=== PATIENT | male | born 1970 | race Two or more races ===

== ENCOUNTER 2020-07-20 22:46 | Emergency (ER) | payer MEDICARE, MEDICAID ==
[~2020-07-20] VITALS: Ht 177.8 cm; Wt 94.3 kg
[~2020-07-20 22:46] MED LIST: CHOL20007 PO; GLIM4TAB42 PO; INSUINJ37 SC; METF-371 PO; MONT10TA34 PO; PANT40TA2 PO; RISP2TAB62 PO; SITA50TA PO; VALS40TA2 PO
[2020-07-21] MEDS ORDERED: BACITRACIN TOP OINT 1 UD PKG TOP ONE (00:30)
[2020-07-21] MEDS ORDERED: HYDROcodone-ACET 5/325MG TAB PO ONE (00:45)
[2020-07-21] MEDS ORDERED: TETANUS-DIPTH-ACEL PERTUSSIS 0.5ML SYR Tdap IM ONE (02:45)
[2020-07-21 02:52] VITALS: BP 130/51
== END 2020-07-21 02:57 | disposition home or self-care (01) ==
LOC: ER 22:46
DX: T22.222A Burn of second degree of left elbow, initial encounter (principal); T24.222A Burn of second degree of left knee, initial encounter; J45.909 Unspecified asthma, uncomplicated; E11.9 Type 2 diabetes mellitus without complications; I10 Essential (primary) hypertension; E66.9 Obesity, unspecified; Z68.29 Body mass index [BMI] 29.0-29.9, adult; Z98.890 Other specified postprocedural states; Z79.4 Long term (current) use of insulin; Z79.899 Other long term (current) drug therapy; X10.2XXA Contact with fats and cooking oils, initial encounter; Y93.89 Activity, other specified; Y92.89 Other specified places as the place of occurrence of the external cause; Y99.8 Other external cause status
CPT/HCPCS: 16020

== ENCOUNTER 2022-09-15 00:39 | Emergency (ER) | payer MEDICARE, OTHER ==
[~2022-09-15] VITALS: Ht 172.7 cm; Wt 95.5 kg
[~2022-09-15 00:39] MED LIST changes: +MONT-8 PO; -MONT10TA34 PO
[2022-09-15 00:47] VITALS: BP 147/57
== END 2022-09-15 03:56 | disposition home or self-care (01) ==
LOC: EDBD 00:39 → ER 00:39
DX: S63.501A Unspecified sprain of right wrist, initial encounter (principal); S63.502A Unspecified sprain of left wrist, initial encounter; S80.01XA Contusion of right knee, initial encounter; I10 Essential (primary) hypertension; E11.9 Type 2 diabetes mellitus without complications; J45.909 Unspecified asthma, uncomplicated; Z79.4 Long term (current) use of insulin; Z79.899 Other long term (current) drug therapy; W01.0XXA Fall on same level from slipping, tripping and stumbling without subsequent striking against object, initial encounter; Y93.89 Activity, other specified; Y92.89 Other specified places as the place of occurrence of the external cause; Y99.8 Other external cause status
CPT/HCPCS: 29125; 73110; 73562

== ENCOUNTER 2022-11-28 22:31 | Emergency (ER) | payer OTHER ==
[~2022-11-28] VITALS: Ht 177.8 cm; Wt 104.0 kg
[2022-11-28 23:22] LABS: Basophils # (auto) 0.1 10 ^3/uL (0-0.2); Basophils % (auto) 0.9 % (0.0-2.0); Eosinophils # (auto) 0 10 ^3/uL (0-0.8); Eosinophils % (auto) 0.1 % (0.0-7.0); Hemoglobin 14.4 g/dL (13.5-17.5); Lymphocytes % (auto) 13.6 % (10.0-50.0); Mean Corpuscular Hgb Conc. 33.6 g/dL (32.0-36.0); Mean Corpuscular Volume 89.3 fL (80.0-100.0); Monocytes # (auto) 0.9 10 ^3/uL (0-1.3); Monocytes % (auto) 5.7 % (0.0-12.0); Neutrophils # (auto) 11.9 10 ^3/uL (1.6-8.6); Neutrophils % (auto) 79.7 % (37.0-80.0); Red Blood Cells 4.81 10^6/uL (4.5-5.90); Red Cell Distribution Width 14.5 % (11.8-14.3)
[2022-11-28 23:45] LABS: Albumin 4.2 g/dL (3.4-5.0); Magnesium 2.8 mg/dL (1.6-2.6); Potassium 4.5 mmol/L (3.5-5.1)
[2022-11-28 23:48] LABS: Bilirubin, Total 0.6 mg/dL (0.2-1.0); Total Protein 8.3 g/dL (6.4-8.2)
[2022-11-29 07:48] LABS: Urine Bacteria FEW /hpf (None Seen); Urine Blood Negative /uL (Negative); Urine Clarity HAZY (Clear); Urine Color Yellow (Yellow); Urine Hyaline Cast MANY /lpf (0 - 2); Urine Mucus FEW (None Seen); Urine Protein, UAD TRACE (Negative); Urine Specific Gravity 1.028 (1.001-1.035); Urine Urobilinogen Normal (Negative); Urine WBC 12 /hpf (0 - 3); Urine pH 5.5 (5.0-8.0)
[2022-11-29 08:49] VITALS: BP 116/64; PULSE 52; RESP 18; TEMP 98.3; O2SAT 95
== END 2022-11-29 08:51 | disposition home or self-care (01) ==
LOC: ER 22:31 → EDBD 22:31 → EDUNIT# 22:31 → ER 11-29 08:45
DX: E11.65 Type 2 diabetes mellitus with hyperglycemia (principal); I12.9 Hypertensive chronic kidney disease with stage 1 through stage 4 chronic kidney disease, or unspecified chronic kidney disease; E11.22 Type 2 diabetes mellitus with diabetic chronic kidney disease; N18.30 Chronic kidney disease, stage 3 unspecified; M79.672 Pain in left foot; M79.671 Pain in right foot; J45.909 Unspecified asthma, uncomplicated; Z79.4 Long term (current) use of insulin; Z79.899 Other long term (current) drug therapy
CPT/HCPCS: 36415; 71045; 80053; 81001; 83735; 84484; 85025; 93005

== ENCOUNTER 2022-11-30 09:51 | Emergency (ER) | payer OTHER ==
[~2022-11-30] VITALS: Ht 177.8 cm; Wt 104.0 kg
[2022-11-30 10:37] LABS: Basophils # (auto) 0.1 10 ^3/uL (0-0.2); Eosinophils # (auto) 0.1 10 ^3/uL (0-0.8); Eosinophils % (auto) 1.4 % (0.0-7.0); Hematocrit 41.6 % (41.0-53.0); Hemoglobin 14.5 g/dL (13.5-17.5); Lymphocytes # (auto) 3.9 10 ^3/uL (0.4-5.4); Lymphocytes % (auto) 39.5 % (10.0-50.0); Mean Corpuscular Hemoglobin 30.9 pg (28.0-32.0); Mean Corpuscular Hgb Conc. 34.8 g/dL (32.0-36.0); Mean Corpuscular Volume 88.9 fL (80.0-100.0); Monocytes # (auto) 0.6 10 ^3/uL (0-1.3); Monocytes % (auto) 5.6 % (0.0-12.0); Neutrophils # (auto) 5.2 10 ^3/uL (1.6-8.6); Neutrophils % (auto) 52.5 % (37.0-80.0); Nucleated Red Blood Cells % 0.1 %; Red Blood Cells 4.68 10^6/uL (4.5-5.90); Red Cell Distribution Width 14.1 % (11.8-14.3); White Blood Cell 9.8 10^3/uL (4.4-10.8)
[2022-11-30 11:17] LABS: Albumin 3.7 g/dL (3.4-5.0); Calcium 9.5 mg/dL (8.5-10.1); Potassium 3.7 mmol/L (3.5-5.1)
[2022-11-30 11:21] LABS: BUN/Creatinine Ratio 27.9 (10.0-20.0); Bilirubin, Total 0.5 mg/dL (0.2-1.0)
[2022-11-30 11:55] VITALS: BP 152/55; PULSE 53; RESP 53; TEMP 97; O2SAT 96
== END 2022-11-30 11:57 | disposition home or self-care (01) ==
LOC: ER 09:51
DX: R07.89 Other chest pain (principal); F41.9 Anxiety disorder, unspecified; I10 Essential (primary) hypertension; E11.9 Type 2 diabetes mellitus without complications; J45.909 Unspecified asthma, uncomplicated; K80.20 Calculus of gallbladder without cholecystitis without obstruction; Z98.890 Other specified postprocedural states; Z79.4 Long term (current) use of insulin; Z79.84 Long term (current) use of oral hypoglycemic drugs; Z79.899 Other long term (current) drug therapy
CPT/HCPCS: 36415; 71045; 80053; 84484; 85025; 93005

== ENCOUNTER → 2023-01-12 | Outpatient (CLI) | payer OTHER, MEDICAID ==
[2023-01-12 09:22] LABS: Basophils # (auto) 0.1 10 ^3/uL (0-0.2); Basophils % (auto) 0.6 % (0.0-2.0); Eosinophils # (auto) 0.2 10 ^3/uL (0-0.8); Eosinophils % (auto) 1.7 % (0.0-7.0); Hematocrit 41.1 % (41.0-53.0); Hemoglobin 13.9 g/dL (13.5-17.5); Lymphocytes # (auto) 3.4 10 ^3/uL (0.4-5.4); Mean Corpuscular Hemoglobin 30.6 pg (28.0-32.0); Mean Corpuscular Hgb Conc. 33.7 g/dL (32.0-36.0); Mean Corpuscular Volume 90.6 fL (80.0-100.0); Monocytes # (auto) 0.6 10 ^3/uL (0-1.3); Monocytes % (auto) 6.5 % (0.0-12.0); Neutrophils # (auto) 5.1 10 ^3/uL (1.6-8.6); Neutrophils % (auto) 55.2 % (37.0-80.0); Nucleated Red Blood Cells % 0.1 %; Red Blood Cells 4.54 10^6/uL (4.5-5.90); Red Cell Distribution Width 13.8 % (11.8-14.3); White Blood Cell 9.3 10^3/uL (4.4-10.8)
[2023-01-12 10:00] LABS: Alanine Aminotransferase 37 U/L (7-40); Albumin 4.8 g/dL (3.2-4.8); Alkaline Phosphatase 82 U/L (46-116); Anion Gap 8 (5-15); Aspartate Aminotransferase 24 U/L (13-40); Bilirubin, Total 0.4 mg/dL (0.2-1.0); Blood Urea Nitrogen 16 mg/dL (9-23); Calcium 9.9 mg/dL (8.5-10.1); Carbon Dioxide 27 mmol/L (20-30); Chloride 108 mmol/L (98-107); Cholesterol 96 mg/dL (< 200); Glucose 163 mg/dL (74-106); HDL Cholesterol 36 mg/dL (40-59); LDL Cholesterol 47 mg/dL (< 100); Potassium 4.3 mmol/L (3.5-5.1); Sodium 143 mmol/L (136-145); Total Protein 7.6 g/dL (5.7-8.2); Triglycerides 54 mg/dL (< 150)
[2023-01-12 13:44] LABS: Free T3 3.62 pg/mL (2.3-4.2); Free T4 (Free Thyroxine) 1.01 ng/dL (0.89-1.76)
== END | disposition home or self-care (01) ==
LOC: LAB 09:03
PROVIDERS: ATTEND Internal Medicine
DX: I10 Essential (primary) hypertension (principal)
CPT/HCPCS: 36415; 80053; 80061; 84439; 84443; 84481; 85025

== ENCOUNTER 2023-12-07 21:53 | Emergency (ER) | payer OTHER, MEDICAID ==
[~2023-12-07] VITALS: Ht 167.6 cm; Wt 100.0 kg
[2023-12-07 21:55] VITALS: BP 161/65; RESP 18; O2SAT 96
[2023-12-07 22:47] VITALS: PULSE 52
== END 2023-12-08 01:54 | disposition home or self-care (01) ==
LOC: ER 21:53
DX: R55 Syncope and collapse (principal); E11.22 Type 2 diabetes mellitus with diabetic chronic kidney disease; I12.9 Hypertensive chronic kidney disease with stage 1 through stage 4 chronic kidney disease, or unspecified chronic kidney disease; N18.9 Chronic kidney disease, unspecified; J45.909 Unspecified asthma, uncomplicated; W01.0XXA Fall on same level from slipping, tripping and stumbling without subsequent striking against object, initial encounter; Y93.89 Activity, other specified; Y92.89 Other specified places as the place of occurrence of the external cause; Y99.8 Other external cause status
CPT/HCPCS: 70450; 72125; 93005

== ENCOUNTER 2024-10-21 00:17 | Emergency (ER) | payer OTHER, MEDICAID ==
[~2024-10-21] VITALS: Ht 172.7 cm; Wt 95.5 kg
--- NOTE | 2024-10-21 01:02 | ED.PDOC ---
History of Present Illness HPI Comments 54-year-old male came to ER for dizziness. Patient is developmentally delayed, has a history of hypertension and diabetes. Patient lives at the assisted care facility. Was noted by caregivers this evening that patient was feeling dizzy. Blood sugar taken was 45, so patient was given a Pepsi and glucose improved to 84. Patient denies any pain, nausea or vomiting, headache, vision changes, focal weakness. Chief Complaint: Dizziness Time Seen by MD: 01:01 Primary Care Provider: UNKNOWN Reviewed Notes: Nurses Notes Allergies: Coded Allergies: NO KNOWN ALLERGIES (Unverified , 12/09/17) Home Meds Reported Medications Cholecalciferol (VITAMIN D3) 2,000 Unit Tab, 50 MCG PO DAILY, TAB 07/15/18 Cholecalciferol (VITAMIN D3) 2,000 Unit Tab, 50 MCG PO DAILY, #30 TAB 5 Refills 07/15/18 Metformin Hydrochloride (Metformin Hcl) 850 Mg Tab, 850 MG PO BID for 30 Days, MG 07/15/18 Insulin Glargine (Lantus Solostar) 100 Unit/Ml Inj, 40 UNIT SC PM, INJ 12/10/17 Insulin Glargine (Lantus Solostar) 100 Unit/Ml Inj, 60 UNIT SC AC, INJ 12/10/17 Risperidone (Risperidone) 2 Mg Tab, 2 MG PO BID, TAB 12/10/17 Pantoprazole Sodium Sesquihydr (Protonix) 40 Mg Tab, 40 MG PO DAILY, #30 TAB 12/10/17 Montelukast Sodium (MONTELUKAST SODIUM) 10 Mg Tab, 1 TAB PO DAILY, #30 TAB 5 Refills 12/10/17 Valsartan (Diovan) 40 Mg Tab, 160 MG PO DAILY, TAB 12/10/17 Sitagliptin Phosphate (Januvia) 50 Mg Tab, 1 TAB PO DAILY, #30 TAB 5 Refills 12/10/17 Glimepiride (Glimepiride) 4 Mg Tab, 1 TAB PO DAILY, #30 TAB 5 Refills 12/10/17 Information Source: Patient Mode of Arrival: Ambulatory Severity: Moderate Timing: Hours Duration: Since onset Past Medical History PAST MEDICAL HISTORY: Asthma, CKF, DM, Gallstones, HTN, NM Past Medical History (Other): Developmental delay Surgical History: Denies all surgeries Family History Family History: Reviewed,noncontributory to illness Social History Smoker: Non-Smoker Alcohol: Denies ETOH Use Drugs: Denies Drug Use Lives In: Home Constitutional: denies: chills, diaphoresis, fatigue, fever, malaise, sweats, weakness, others EENTM: denies: blurred vision, double vision, ear bleeding, ear discharge, ear drainage, ear pain, ear ringing, eye pain, eye redness, hearing loss, mouth pain, mouth swelling, nasal discharge, nose bleeding, nose congestion, nose pain, photophobia, tearing, throat pain, throat swelling, voice changes, others Respiratory: denies: cough, hemoptysis, orthopnea, SOB at rest, shortness of breath, SOB with excertion, stridor, wheezing, others Cardiovascular: denies: chest pain, dizzy spells, diaphoresis, Dyspnea on exertion, edema, irregular heart beat, left arm pain, lightheadedness, palpitations, PND, syncope, others Gastrointestinal: denies: abdomen distended, abdominal pain, blood streaked bowels, constipated, diarrhea, dysphagia, difficulty swallowing, hematemesis, melena, nausea, poor appetite, poor fluid intake, rectal bleeding, rectal pain, vomiting, others Genitourinary: denies: burning, dysuria, flank pain, frequency, hematuria, incontinence, penile discharge, penile sore, pain, testicle pain, testicle swelling, urgency, others Neurological: reports: dizziness; denies: fainting, headache, left sided numbness, left sided weakness, numbness, paresthesia, pre-existing deficit, right sided numbness, right sided weakness, seizure, speech problems, tingling, tremors, weakness, others Musculoskeletal: denies: back pain, gout, joint pain, joint swelling, muscle pain, muscle stiffness, neck pain, others Integumetry: denies: bruises, change in color, change in hair/nails, dryness, laceration, lesions, lumps, rash, wounds, others Allergic/Immunocompromised: denies: Difficulty Healing, Frequent Infections, Hives, Itching, others Hematologic/Lymphatic: denies: anemia, blood clots, easy bleeding, easy bruising, swollen glands, others Endocrine: denies: excessive hunger, excessive sweating, excessive thirst, excessive urination, flushing, intolerance to cold, intolerance to heat, une xplained weight gain, unexplained weight loss, others Psychiatric: denies: anxiety, bipolar disorder, depression, hopeless, panic disorder, schizophrenia, sleepless, suicidal, others Physical Exam General Appearance: No Apparent Distress, Obese HEENT: Other (Pupils and face symmetric. Moist mucous membranes.) Neck: Full Range of Motion, Normal Inspection Respiratory: Lungs Clear, No Accessory Muscle Use, No Respiratory Distress, Normal Breath Sounds Cardiovascular: No Edema, No JVD, Regular Rate/Rhythm Breast Exam: Deferred Gastrointestinal: Non Tender, Soft Genitalia: Deferred Pelvic: Deferred Rectal: Deferred Extremities: Normal inspection, Normal range of motion, Non-tender, No pedal edema Neurologic: Alert (Oriented x4), Normal Affect, Normal Mood, Other (Ambulatory without difficulty) Cerebellar Function: NOT DONE Reflexes: NOT DONE Skin: Dry, Normal Color, Warm Lymphatic: NOT DONE Was a procedure done? Was a procedure done?: No EKG EKG : Comments Sinus rhythm, rate 56, normal [place] interval, QRS 181, normal QTC interval, normal axis, right bundle-branch block, nonspecific T change. Differential Dx Considerations may include: Hypoglycemia, Anemia, electrolyte imbalance, urinary tract infection, hypovolemia, vertigo, among others X-Ray, Labs, Meds, VS Vital Signs Date Time Temp Pulse Resp B/P (MAP) Pulse Ox O2 Delivery O2 Flow Rate FiO2 10/21/24 01:20 56 10/21/24 00:35 97.7 55 18 133/60 (84) 95 97.7 Lab Test 10/21/24 02:16 10/21/24 01:28 10/21/24 00:45 Range/Units Troponin I High Sensitivity 7 8 </=54 ng/L White Blood Count 9.3 4.4-10.8 10^3/uL Red Blood Count 4.73 4.5-5.90 10^6/uL Hemoglobin 14.1 13.5-17.5 g/dL Hematocrit 41.9 41.0-53.0 % Mean Corpuscular Volume 88.6 80.0-100.0 fL Mean Corpuscular Hemoglobin 29.8 28.0-32.0 pg Mean Corpuscular Hemoglobin Concent 33.7 32.0-36.0 g/dL Red Cell Distribution Width 14.4 H 11.8-14.3 % Platelet Count 306 140-450 10^3/uL Mean Platelet Volume 8.4 6.9-10.8 fL Neutrophils (%) (Auto) 53.9 37.0-80.0 % Lymphocytes (%) (Auto) 36.5 10.0-50.0 % Monocytes (%) (Auto) 6.4 0.0-12.0 % Eosinophils (%) (Auto) 2.3 0.0-7.0 % Basophils (%) (Auto) 0.9 0.0-2.0 % Neutrophils # (Auto) 5.0 1.6-8.6 10 ^3/uL Lymphocytes # (Auto) 3.4 0.4-5.4 10 ^3/uL Monocytes # (Auto) 0.6 0-1.3 10 ^3/uL Eosinophils # (Auto) 0.2 0-0.8 10 ^3/uL Basophils # (Auto) 0.1 0-0.2 10 ^3/uL Nucleated Red Blood Cells 0.0 % Sodium Level 139 136-145 mmol/L Potassium Level 3.6 3.5-5.1 mmol/L Chloride Level 103 98-107 mmol/L Carbon Dioxide Level 26 20-31 mmol/L Anion Gap 10 5-15 Blood Urea Nitrogen 16 9-23 mg/dL Creatinine 0.84 0.700-1.30 mg/dL Glomerular Filtration Rate Calc 102 >90 mL/min BUN/Creatinine Ratio 19.0 10.0-20.0 Serum Glucose 109 H 74-106 mg/dL Calcium Level 10.1 8.7-10.4 mg/dL B-Type Natriuretic Peptide 9.59 0-100 pg/mL Urine Color Colorless Yellow Urine Clarity Clear Clear Urine pH 5.5 5.0-9.0 Urine Specific Charlo 1.005 1.001-1.035 Urine Protein Negative Negative Urine Ketones Negative Negative Urine Blood Negative Negative /uL Urine Nitrite Negative Negative Urine Bilirubin Negative Negative Urine Urobilinogen Normal Negative mg/dL Urine Leukocyte Esterase Negative Negative /uL Urine RBC <1 0 - 3 /hpf Urine Microscopic WBC 0-3 /HPF Urine Squamous Epithelial Cells None seen <5 /hpf Urine Bacteria None seen None Seen /hpf Urine Sperm Present None Seen /hpf Urine Glucose 4+ H Normal mg/dL CHEST RADIOGRAPH Indication: dizzy Technique: Single frontal view of the chest was obtained COMPARISON: XY CHEST PORTABLE on DOS: 11/30/22, XY CHEST PORTABLE on DOS: 11/29/22 FINDINGS: Lines and Tubes: None Lungs: Clear Pleura: No effusion. No pneumothorax. Cardiomediastinal contours: Unremarkable Bones: Unremarkable IMPRESSION: 1. No acute disease. X-Ray, Labs, Meds, VS Comment 54-year-old male with a history of hypertension, diabetes and developmental delay brought in by caregiver for evaluation of dizziness and hypoglycemia Vitals remarkable for heart rate 55 Exam unremarkable Rhythm strip independently interpreted by me: Sinus rhythm, rate 56, no ectopy. Chest x-ray unremarkable CBC unremarkable, basic metabolic panel remarkable for glucose 109, BNP and 2 serial troponins negative, UA 4+ glucose, otherwise unremarkable Patient treated with the following in the ED: Provided with p.o. Jell-O and juice On re-evaluation, patient is alert and at his baseline mental status. He is ambulatory. Vitals are unremarkable. He is asymptomatic. Accu-Chek was Patient appears stable for discharge with close outpatient follow-up with his primary physician. Caregivers were instructed to perform Q2h Accu-Cheks for the next 24 hours. Time of 1ST Reevaluation: 00:56 Reevaluation 1ST: Unchanged Time of 2ND Reevaluation: 04:21 Reevaluation 2ND: Improved Patient Education/Counseling: Diagnosis, Treatment Family Education/Counseling: Diagnosis, Treatment SEPSIS Sepsis Screen Date sepsis recognized/suspect: Oct 21, 2024 Time Sepsis recognized/suspect: 0025 Recent Procedure: No On Antibiotic Therapy: No Respiratory Rate >20: No Heart Rate >90: No Temp<36 C (96.8 F) or >38.3 C: No SBP <90 or MAP <65 mmHG: No New Acute Mental Status Change: No Is the patient on CPAP, BIPAP,: No Physician Orders Chest Portable (10/21/24 00:45) Electrocardigram (10/21/24 00:45) Troponin-I Hs (10/21/24 03:45) Accucheck (10/21/24 04:13) Vital Signs Date Time Temp Pulse Resp B/P (MAP) Pulse Ox O2 Delivery O2 Flow Rate FiO2 10/21/24 01:20 56 10/21/24 00:35 97.7 55 18 133/60 (84) 95 97.7 Laboratory Tests Test 10/21/24 01:28 White Blood Count 9.3 10^3/uL (4.4-10.8) Departure 1 Departure Time of Disposition: 04:21 Impression: Primary Impression: Hypoglycemia Disposition: 01 HOME / SELF CARE / HOMELESS Condition: Stable Additional Instructions: Your blood tests were unremarkable. Your chest x-ray was unremarkable. Check blood glucose every 2 hours for the next 24 hours. Follow-up with primary doctor in 1-2 days. Discharged With: Health Consultant Critical Care Note Critical Care Time?: No Stability Stability form required: No Heart Score Heart Score: Heart Score Response (Comments) Value History N/A 0 EKG N/A 0 Age N/A 0 Risk Factors N/A 0 Troponin N/A 0 Total 0 I personally scribed for NACHO REGAN MD ([email or web address]) on 10/21/24 at 01:02. Electronically submitted by Darryl Daly ([employer]). I personally scribed for NACHO REGAN MD ([email or web address]) on 10/21/24 at 01:24. Electronically submitted by Darryl Daly ([facility]). NACHO REGAN MD Oct 21, 2024 01:02
--- NOTE | 2024-10-21 01:18 | DVH ---
CHEST RADIOGRAPH Indication: dizzy Technique: Single frontal view of the chest was obtained COMPARISON: XY CHEST PORTABLE on DOS: 11/30/22, XY CHEST PORTABLE on DOS: 11/29/22 FINDINGS: Lines and Tubes: None Lungs: Clear Pleura: No effusion. No pneumothorax. Cardiomediastinal contours: Unremarkable Bones: Unremarkable IMPRESSION: 1. No acute disease.
[2024-10-21 01:40] LABS: Hematocrit 41.9 % (41.0-53.0); Hemoglobin 14.1 g/dL (13.5-17.5); Mean Corpuscular Hemoglobin 29.8 pg (28.0-32.0); Mean Corpuscular Volume 88.6 fL (80.0-100.0); Nucleated Red Blood Cells % 0.0 %
[2024-10-21 01:48] LABS: Urine Protein, UAD Negative (Negative)
[2024-10-21 01:51] LABS: Chloride 103 mmol/L (98-107); Potassium 3.6 mmol/L (3.5-5.1); Sodium 139 mmol/L (136-145)
[2024-10-21 01:52] LABS: Anion Gap 10 (5-15); Carbon Dioxide 26 mmol/L (20-31)
[2024-10-21 01:53] LABS: Calcium 10.1 mg/dL (8.7-10.4)
[2024-10-21 01:57] LABS: BUN/Creatinine Ratio 19.0 (10.0-20.0); Blood Urea Nitrogen 16 mg/dL (9-23)
[2024-10-21 02:01] LABS: Glucose 109 mg/dL (74-106)
[2024-10-21 06:02] VITALS: BP 137/53; PULSE 45; RESP 16; TEMP 98.3
[2024-10-21 06:08] VITALS: O2SAT 98
--- NOTE | 2024-10-24 10:44 | ECG ---
[facility] Test Date: 2024-10-21 Test Time: 01:20:21 Pat Name: CARLITO SALAZAR Department: ER Room: Gender: M Care Partner: AM : 1970 Requested By: NACHO HINSON Order Number: [id number] Reading MD: Measurements Intervals [place] Rate: 56 P: 50 MI: 158 QRS: 44 QRSD: 181 T: 27 QT: 478 QTc: 462 Interpretive Statements Sinus rhythm Right bundle branch block Please click the below link to view image of tracing.
== END 2024-10-21 06:08 | disposition home or self-care (01) ==
LOC: ER 00:17
DX: E11.649 Type 2 diabetes mellitus with hypoglycemia without coma (principal); I12.9 Hypertensive chronic kidney disease with stage 1 through stage 4 chronic kidney disease, or unspecified chronic kidney disease; E11.22 Type 2 diabetes mellitus with diabetic chronic kidney disease; N18.9 Chronic kidney disease, unspecified; J45.909 Unspecified asthma, uncomplicated; R06.02 Shortness of breath; Z79.84 Long term (current) use of oral hypoglycemic drugs; Z79.899 Other long term (current) drug therapy
CPT/HCPCS: 36415; 71045; 80048; 81001; 82947; 82962; 83880; 84484; 85025; 93005